=== PATIENT | female | born 1940 | race African-American/Black ===

== ENCOUNTER 2018-03-07 17:03 | Inpatient (IN) ==
[2018-03-07] MEDS ORDERED: methylPREDNISolone SOD SUC 125 MG/2 ML VIAL IV STA (17:16)
[2018-03-07] MEDS ORDERED: NITROGLYCERIN 2% OINT 1 INCH/GM PACK TOP STA (17:16)
[2018-03-07] MEDS ORDERED: ONDANSETRON 4 MG/2 ML VIAL IV STA (17:16)
[2018-03-07] MEDS ORDERED: ASPIRIN 325 MG TABLET PO STA (17:16)
[2018-03-07] MEDS ORDERED: FUROSEMIDE 100 MG/10 ML VIAL IV STA (17:16)
[2018-03-07] MEDS ORDERED: ALBUTEROL/IPRATROPIUM 3 ML NEB RESP TX STA (17:16)
[2018-03-07] MEDS ORDERED: ENOXAPARIN 100 MG/ML SYRINGE SUBCUT STA (17:16)
[2018-03-07] MEDS ORDERED: DILTIAZEM 50 MG/10 ML VIAL IV STA (17:36)
[2018-03-07 17:41] LABS: Basophils # 0.1 10*3/uL (0.0-0.2); Basophils % 0.8 % (0.0-0.8); Eosinophils # 0.2 10*3/uL (0.0-0.87); Eosinophils % 1.1 % (0.00-10.9); Hematocrit 46.3 VOL% (35.7-47.0); Hemoglobin 14.5 GM/DL (12.0-16.0); Immature Granulocytes % 0.4 %; Immature Granulocytes Absolute 0.05 #; Lymphocytes # 3.3 10*3/uL (1.4-4.0); Lymphocytes % 25.2 % (21.3-54.2); Mean Corpuscular HGB Conc 31.3 GM/DL (32-36); Mean Corpuscular Hemoglobin 28 PG (27-34); Mean Corpuscular Volume 89.2 FL (87-102); Mean Platelet Volume 11.5 FL (9.6-12.0); Monocytes # 0.8 10*3/uL (0.11-0.8); Monocytes % 5.9 % (1.7-12.7); Neutrophils # 8.8 10*3/uL (1.4-7.4); Neutrophils % 66.6 % (38.7-73.9); Platelet Count 226 T/CUMM (130-400); Red Blood Count 5.19 MC/CUMM (3.8-5.5); Red Cell Distribution Width 13.6 % (9.3-17.3); White Blood Count 13.2 T/CUMM (4-12)
[2018-03-07] MEDS ORDERED: FUROSEMIDE 40 MG/4 ML VIAL ONE (17:46)
[2018-03-07] MEDS ORDERED: DILTIAZEM 25 MG/5 ML VIAL IV ONE (17:47)
[2018-03-07] MEDS ORDERED: FUROSEMIDE 20 MG/2 ML VIAL ONE (17:47)
[2018-03-07] MEDS ORDERED: ENOXAPARIN 40 MG/0.4 ML SYRINGE ONE (17:47)
[2018-03-07 17:49] LABS: Apearance,Urine CLEAR (Clear); Bacteria,Urine Occasional /HPF (Few); Bilirubin,Urine Negative (Negative); Blood, Urine Negative (Negative); Glucose,Urine (UA) Negative (Negative); Ketones,Urine Negative (Negative); Mucus,Urine Occasional /LPF (Occasional); Nitrite,Urine Negative (Negative); Protein,Urine 30 MG/DL; RBC,Urine <1 /HPF (0-4); Urine Color Yellow (Yellow); Urine Specific Gravity 1.009 (1.001-1.035); Urine Urobilinogen < 2.0 EU/DL (0.2-1.0); WBC,Urine 2 /HPF (0-6)
[2018-03-07 17:56] LABS: PT Patient Result 10.7 SECS
[2018-03-07 18:03] LABS: Barbiturates Screen,Urine Negative (Negative); Benzodiazepines Screen,Urine Negative (Negative); Cannabinoid Screen,Urine Negative (Negative); Opiate Screen,Urine Negative (Negative); Phencyclidine Screen,Urine Negative (Negative)
[2018-03-07 18:15] LABS: Albumin 3.4 G/DL (3.4-5.0); Bilirubin,Total 0.7 MG/DL (0.2-1.0); Calcium 9.5 MG/DL (8.5-10.1); Osmolality,Calculated 288.4 MOS/KG (273-304); Potassium 3.7 MMOL/L (3.5-5.1); Total Protein 8.2 G/DL (6.4-8.3)
[2018-03-07] MEDS ORDERED: cefTRIAXone 1,000 MG in SODIUM CHLORIDE 0.9% 100 ML IV STA (18:37)
[2018-03-07] MEDS ORDERED: ACETAMINOPHEN 325 MG TABLET PO PRN (19:41)
[2018-03-07] MEDS ORDERED: ONDANSETRON 4 MG/2 ML VIAL IV PRN (19:41)
[2018-03-07] MEDS ORDERED: ALBUTEROL/IPRATROPIUM 3 ML NEB RESP TX PRN (19:41)
[2018-03-07] MEDS ORDERED: MORPHINE 4 MG/1 ML VIAL IV PRN (19:41)
[2018-03-07] MEDS ORDERED: BISACODYL 5 MG TABLET PO PRN (19:41)
[2018-03-07] MEDS ORDERED: ALBUTEROL 2.5 MG/3 ML NEB RESP TX PRN (19:41)
[2018-03-07] MEDS ORDERED: AZITHROMYCIN INJ 500 MG in SODIUM CHLORIDE 0.9% 250 ML IV SCH (20:00)
[2018-03-07] MEDS ORDERED: SODIUM CHLORIDE 0.9% 1,000 ML IV SCH (20:00)
[2018-03-07] MEDS ORDERED: hydrALAZINE 20 MG/1 ML VIAL IV PRN (20:02)
[2018-03-07] MEDS ORDERED: GLUCAGON 1 MG VIAL IM PRN (20:28)
[2018-03-07] MEDS ORDERED: DEXTROSE 50% 25 GM/50 ML SYRINGE IV PRN (20:28)
[2018-03-08] MEDS: INSULIN REGULAR 100 UNIT/ML SUBCUT SCH ×5 (01:09→21:10)
[2018-03-08 04:12] LABS: Basophils % 0.3 % (0.0-0.8); Hematocrit 43.5 VOL% (35.7-47.0); Hemoglobin 13.8 GM/DL (12.0-16.0); Immature Granulocytes % 0.4 %; Immature Granulocytes Absolute 0.05 #; Lymphocytes # 0.8 10*3/uL (1.4-4.0); Mean Corpuscular HGB Conc 31.7 GM/DL (32-36); Mean Corpuscular Hemoglobin 28 PG (27-34); Mean Corpuscular Volume 87.9 FL (87-102); Monocytes # 0.1 10*3/uL (0.11-0.8); Monocytes % 1.1 % (1.7-12.7); Neutrophils # 10.7 10*3/uL (1.4-7.4); Neutrophils % 91.2 % (38.7-73.9); Platelet Count 217 T/CUMM (130-400); Red Blood Count 4.95 MC/CUMM (3.8-5.5); Red Cell Distribution Width 13.7 % (9.3-17.3); White Blood Count 11.7 T/CUMM (4-12)
[2018-03-08 04:41] LABS: Calcium 8.7 MG/DL (8.5-10.1); Osmolality,Calculated 293.3 MOS/KG (273-304); Potassium 3.9 MMOL/L (3.5-5.1)
[2018-03-08 04:46] LABS: Lymphocytes 3 % (20-55); Platelet Estimate Adequate; Polychromasia Few; Segmented Neutrophils 96 % (50-85); Total Cells Counted 100
[2018-03-08] MEDS ORDERED: ENOXAPARIN 150 MG/ML SYRINGE SUBCUT SCH (05:00)
[2018-03-08] MEDS: amLODIPine 5 MG TABLET PO SCH (09:56)
[2018-03-08] MEDS: ENOXAPARIN 120 MG/0.8 ML SYRINGE SUBCUT SCH (18:15)
[2018-03-08] MEDS ORDERED: cefTRIAXone 1,000 MG in SYRINGE 1 EACH IV SCH (18:30)
[2018-03-09] MEDS: ENOXAPARIN 120 MG/0.8 ML SYRINGE SUBCUT SCH ×2 (05:21→17:04)
[2018-03-09 06:04] LABS: Basophils # 0.1 10*3/uL (0.0-0.2); Basophils % 0.4 % (0.0-0.8); Eosinophils % 0.2 % (0.00-10.9); Hematocrit 41.8 VOL% (35.7-47.0); Immature Granulocytes % 0.4 %; Immature Granulocytes Absolute 0.06 #; Lymphocytes # 3.7 10*3/uL (1.4-4.0); Lymphocytes % 21.3 % (21.3-54.2); Mean Corpuscular HGB Conc 31.1 GM/DL (32-36); Mean Corpuscular Hemoglobin 28 PG (27-34); Mean Corpuscular Volume 90.9 FL (87-102); Mean Platelet Volume 11.1 FL (9.6-12.0); Neutrophils # 12.3 10*3/uL (1.4-7.4); Neutrophils % 71.7 % (38.7-73.9); Platelet Count 229 T/CUMM (130-400); White Blood Count 17.1 T/CUMM (4-12)
[2018-03-09 06:27] LABS: Calcium 8.9 MG/DL (8.5-10.1); Potassium 3.2 MMOL/L (3.5-5.1)
[2018-03-09 06:35] LABS: Risk Ratio 3.49; VLDL CHOLESTEROL 13.2 MG/DL
[2018-03-09] MEDS: INSULIN REGULAR 100 UNIT/ML SUBCUT SCH ×4 (08:19→20:34)
[2018-03-09] MEDS ORDERED: GLUCAGON 1 MG VIAL IM PRN (08:26)
[2018-03-09] MEDS ORDERED: DEXTROSE 50% 25 GM/50 ML VIAL IV PRN (08:26)
[2018-03-09] MEDS: amLODIPine 5 MG TABLET PO SCH (08:58)
[2018-03-09] MEDS ORDERED: POTASSIUM CHLORIDE 10 MEQ TABLET PO ONE (09:28)
[2018-03-09] MEDS: APIXABAN 5 MG TABLET PO SCH ×2 (13:16→20:31)
[2018-03-09] MEDS: ROSUVASTATIN 10 MG TABLET PO SCH (20:31)
[2018-03-10] MEDS: ENOXAPARIN 120 MG/0.8 ML SYRINGE SUBCUT SCH (04:13)
[2018-03-10 05:33] LABS: Basophils # 0.1 10*3/uL (0.0-0.2); Basophils % 0.6 % (0.0-0.8); Eosinophils # 0.1 10*3/uL (0.0-0.87); Eosinophils % 0.7 % (0.00-10.9); Hematocrit 41.6 VOL% (35.7-47.0); Hemoglobin 13.1 GM/DL (12.0-16.0); Immature Granulocytes % 0.3 %; Immature Granulocytes Absolute 0.04 #; Lymphocytes # 3.3 10*3/uL (1.4-4.0); Lymphocytes % 26.3 % (21.3-54.2); Mean Corpuscular HGB Conc 31.5 GM/DL (32-36); Mean Corpuscular Hemoglobin 28 PG (27-34); Mean Corpuscular Volume 89.3 FL (87-102); Mean Platelet Volume 11.5 FL (9.6-12.0); Monocytes # 0.7 10*3/uL (0.11-0.8); Neutrophils # 8.2 10*3/uL (1.4-7.4); Neutrophils % 66.1 % (38.7-73.9); Platelet Count 236 T/CUMM (130-400); Red Blood Count 4.66 MC/CUMM (3.8-5.5); Red Cell Distribution Width 14.1 % (9.3-17.3); White Blood Count 12.4 T/CUMM (4-12)
[2018-03-10 05:59] LABS: Calcium 8.3 MG/DL (8.5-10.1); Osmolality,Calculated 289.8 MOS/KG (273-304); Potassium 3.5 MMOL/L (3.5-5.1)
[2018-03-10] MEDS: INSULIN REGULAR 100 UNIT/ML SUBCUT SCH ×4 (07:44→22:55)
[2018-03-10] MEDS: amLODIPine 5 MG TABLET PO SCH (09:31)
[2018-03-10] MEDS: APIXABAN 5 MG TABLET PO SCH ×2 (09:37→22:51)
[2018-03-10] MEDS: ROSUVASTATIN 10 MG TABLET PO SCH (22:55)
[2018-03-11] MEDS: INSULIN REGULAR 100 UNIT/ML SUBCUT SCH ×4 (08:38→20:26)
[2018-03-11] MEDS: APIXABAN 5 MG TABLET PO SCH ×2 (08:55→20:23)
[2018-03-11] MEDS: amLODIPine 5 MG TABLET PO SCH (08:55)
[2018-03-11] MEDS: ROSUVASTATIN 10 MG TABLET PO SCH (20:22)
[2018-03-12 09:30] LABS: Calcium 8.4 MG/DL (8.5-10.1); Osmolality,Calculated 284.1 MOS/KG (273-304); Potassium 3.7 MMOL/L (3.5-5.1)
[2018-03-12] MEDS: APIXABAN 5 MG TABLET PO SCH (10:07)
[2018-03-12] MEDS: amLODIPine 5 MG TABLET PO SCH (10:07)
[2018-03-12] MEDS: INSULIN REGULAR 100 UNIT/ML SUBCUT SCH ×2 (10:07→12:38)
[2018-03-12] MEDS ORDERED: FLECAINIDE 50 MG TABLET PO SCH (10:30)
[2018-03-12 11:59] VITALS: BP 133/79
== END 2018-03-12 16:20 | disposition home health service (06) | DRG 166 ==
LOC: EDUNIT# → EDBD → N.ED 17:03 → N.ICU 19:13 → SUATTDRO 19:13 → N.ICU 20:58 → N.TELEN 03-10 13:26
PROVIDERS: ADMIT Family Medicine; ATTEND Internal Medicine

== ENCOUNTER 2019-04-20 17:08 | Observation (INO) ==
[2019-04-20] MEDS ORDERED: ONDANSETRON 4 MG/2 ML VIAL IV STA (17:31)
[2019-04-20] MEDS ORDERED: SODIUM CHLORIDE 0.9% 1,000 ML IV STA ×2 (17:31→19:59)
[2019-04-20 17:54] LABS: Basophils # 0.1 10*3/uL (0.0-0.2); Basophils % 0.3 % (0.0-0.8); Eosinophils % 0.1 % (0.00-10.9); Hematocrit 39.9 VOL% (35.7-47.0); Hemoglobin 12.9 GM/DL (12.0-16.0); Immature Granulocytes % 0.6 %; Lymphocytes # 0.7 10*3/uL (1.4-4.0); Mean Corpuscular HGB Conc 32.3 GM/DL (32-36); Mean Corpuscular Volume 89.3 FL (87-102); Monocytes % 6.3 % (1.7-12.7); Neutrophils % 88.7 % (38.7-73.9); Platelet Count 234 T/CUMM (130-400); Red Blood Count 4.47 MC/CUMM (3.8-5.5); Red Cell Distribution Width 13.5 % (9.3-17.3); White Blood Count 16.4 T/CUMM (4-12)
[2019-04-20 18:15] LABS: Albumin 3.1 G/DL (3.4-5.0); Bilirubin,Total 0.7 MG/DL (0.2-1.0); Calcium 8.8 MG/DL (8.5-10.1); Osmolality,Calculated 282.7 MOS/KG (273-304); Total Protein 7.1 G/DL (6.4-8.3)
[2019-04-20 18:33] LABS: Band Neutrophils 2 % (0-10); Lymphocytes 5 % (20-55); Segmented Neutrophils 88 % (50-85); Total Cells Counted 100
[2019-04-20 18:34] LABS: Hypochromasia 1+; Microcytosis Slight
[2019-04-20 18:35] LABS: Polychromasia 1+; Toxic Granulation 1+
[2019-04-20 18:36] LABS: Platelet Estimate Normal
[2019-04-20 22:15] LABS: Apearance,Urine CLEAR (Clear); Bacteria,Urine Occasional /HPF (Few); Bilirubin,Urine Negative (Negative); Blood, Urine Small mg/dL (Negative); Glucose,Urine (UA) Negative (Negative); Ketones,Urine 5 mg/dL (Negative); Mucus,Urine Occasional /LPF (Occasional); Nitrite,Urine Positive (Negative); Protein,Urine 30 MG/DL; RBC,Urine 5 /HPF (0-4); Squamous Epithelial Cell,Urine Occasional /HPF (0-10); Urine Color Yellow (Yellow); Urine Specific Gravity > 1.060 (1.001-1.035); WBC,Urine 30 /HPF (0-6)
[2019-04-20] MEDS ORDERED: cefTRIAXone 1,000 MG in SODIUM CHLORIDE 0.9% 100 ML IV STA (22:20)
[2019-04-20] MEDS ORDERED: ACETAMINOPHEN 325 MG TABLET PO PRN (22:30)
[2019-04-20] MEDS ORDERED: amLODIPine 5 MG TABLET PO SCH (22:30)
[2019-04-20] MEDS ORDERED: ONDANSETRON 4 MG/2 ML VIAL IV PRN (22:30)
[2019-04-20] MEDS ORDERED: IBUPROFEN 600 MG TABLET PO PRN (22:30)
[2019-04-21] MEDS: SODIUM CHLORIDE 0.9% 1,000 ML IV SCH ×3 (00:06→16:42)
[2019-04-21 05:12] LABS: Basophils # 0.1 10*3/uL (0.0-0.2); Basophils % 0.4 % (0.0-0.8); Eosinophils % 0.4 % (0.00-10.9); Hematocrit 36.4 VOL% (35.7-47.0); Hemoglobin 11.5 GM/DL (12.0-16.0); Immature Granulocytes % 0.4 %; Immature Granulocytes Absolute 0.04 #; Lymphocytes % 17.5 % (21.3-54.2); Mean Corpuscular HGB Conc 31.6 GM/DL (32-36); Mean Corpuscular Volume 91.7 FL (87-102); Monocytes % 9.2 % (1.7-12.7); Neutrophils % 72.1 % (38.7-73.9); Platelet Count 226 T/CUMM (130-400); Red Blood Count 3.97 MC/CUMM (3.8-5.5); Red Cell Distribution Width 13.9 % (9.3-17.3); White Blood Count 11.2 T/CUMM (4-12)
[2019-04-21 05:39] LABS: Albumin 2.6 G/DL (3.4-5.0); Bilirubin,Total 0.5 MG/DL (0.2-1.0); Calcium 8.1 MG/DL (8.5-10.1); Osmolality,Calculated 286.1 MOS/KG (273-304); Total Protein 6.2 G/DL (6.4-8.3)
[2019-04-21] MEDS: glipiZIDE 10 MG TABLET PO SCH ×2 (07:56→16:14)
[2019-04-21] MEDS: LOSARTAN/HCTZ 50-12.5 MG TABLET PO SCH (07:59)
[2019-04-21] MEDS: PANTOPRAZOLE 40 MG VIAL IV SCH (07:59)
[2019-04-21] MEDS ORDERED: GLUCAGON 1 MG VIAL IM PRN (08:38)
[2019-04-21] MEDS ORDERED: DEXTROSE 10% 250 ML BAG IV PRN (08:38)
[2019-04-21] MEDS: FLECAINIDE 50 MG TABLET PO SCH ×2 (09:32→21:04)
[2019-04-21] MEDS: INSULIN LISPRO 100 UNIT/ML SUBCUT SCH ×3 (12:17→21:05)
[2019-04-21] MEDS: APIXABAN 5 MG TABLET PO SCH (16:14)
[2019-04-21] MEDS: cefTRIAXone 1,000 MG in SYRINGE 1 EACH IV SCH (21:06)
[2019-04-22] MEDS: SODIUM CHLORIDE 0.9% 1,000 ML IV SCH ×2 (02:26→08:46)
[2019-04-22] MEDS: glipiZIDE 10 MG TABLET PO SCH ×2 (06:34→16:10)
[2019-04-22] MEDS: PANTOPRAZOLE 40 MG VIAL IV SCH (08:29)
[2019-04-22] MEDS: FLECAINIDE 50 MG TABLET PO SCH ×2 (08:30→21:21)
[2019-04-22] MEDS: LOSARTAN/HCTZ 50-12.5 MG TABLET PO SCH (08:30)
[2019-04-22] MEDS: APIXABAN 5 MG TABLET PO SCH ×2 (08:30→16:10)
[2019-04-22] MEDS: amLODIPine 5 MG TABLET PO SCH (08:32)
[2019-04-22] MEDS: INSULIN LISPRO 100 UNIT/ML SUBCUT SCH ×4 (08:45→21:45)
[2019-04-22] MEDS: cefTRIAXone 1,000 MG in SYRINGE 1 EACH IV SCH (21:19)
[2019-04-23 05:10] LABS: Basophils # 0.1 10*3/uL (0.0-0.2); Basophils % 0.5 % (0.0-0.8); Eosinophils # 0.2 10*3/uL (0.0-0.87); Hematocrit 38.3 VOL% (35.7-47.0); Hemoglobin 12.2 GM/DL (12.0-16.0); Immature Granulocytes % 0.2 %; Immature Granulocytes Absolute 0.02 #; Lymphocytes # 1.6 10*3/uL (1.4-4.0); Mean Corpuscular HGB Conc 31.9 GM/DL (32-36); Mean Corpuscular Volume 90.3 FL (87-102); Monocytes % 12.9 % (1.7-12.7); Neutrophils % 67.4 % (38.7-73.9); Platelet Count 212 T/CUMM (130-400); Red Blood Count 4.24 MC/CUMM (3.8-5.5); Red Cell Distribution Width 13.5 % (9.3-17.3); White Blood Count 9.1 T/CUMM (4-12)
[2019-04-23 05:47] LABS: Calcium 8.6 MG/DL (8.5-10.1); Osmolality,Calculated 278.4 MOS/KG (273-304)
[2019-04-23] MEDS ORDERED: POTASSIUM CHLORIDE 20 MEQ TABLET PO ONE (07:19)
[2019-04-23] MEDS: INSULIN LISPRO 100 UNIT/ML SUBCUT SCH ×2 (08:37→12:00)
[2019-04-23] MEDS: glipiZIDE 10 MG TABLET PO SCH (08:54)
[2019-04-23] MEDS: FLECAINIDE 50 MG TABLET PO SCH (08:54)
[2019-04-23] MEDS: amLODIPine 5 MG TABLET PO SCH (08:54)
[2019-04-23] MEDS: PANTOPRAZOLE 40 MG VIAL IV SCH (08:54)
[2019-04-23] MEDS: LOSARTAN/HCTZ 50-12.5 MG TABLET PO SCH (08:54)
[2019-04-23] MEDS: APIXABAN 5 MG TABLET PO SCH (08:54)
[2019-04-23 12:09] VITALS: BP 152/82
== END 2019-04-23 13:44 | disposition home or self-care (01) ==
LOC: N.ED 17:08 → N.EDINP 17:08 → N.5E 23:01
PROVIDERS: ADMIT Family Medicine; ATTEND Family Medicine